=== PATIENT | male | born 1955 | race Caucasian/White ===

== ENCOUNTER 2019-11-06 14:42 | Outpatient (CLI) | payer OTHER ==
--- NOTE | 2019-11-06 15:28 | RAD ---
LUMBAR SPINE 3 VIEWS: HISTORY: Lumbar stenosis with neurogenic claudication. FINDINGS: Lateral neutral, lateral flexion and lateral upright views of the lumbar spine are submitted. There a re 5 lumbar-type vertebrae. No evidence of vertebral body fracture. Spondylolisthesis: L3-L4: 3.8 mm of anterolisthesis in the neutral position; 4 mm of anterolisthesis upon extension; 4.3 mm of anterolisthesis upon flexion. L4-L5: 5.5 mm of anterolisthesis in the neutral position; 4.5 mm of anterolisthesis upon extension; 4 .2 mm of anterolisthesis upon flexion. Moderate loss of disc space height at L5-S1. IMPRESSION: Grade 1 anterolisthesis of L3 upon L4 and L4 upon L5. Worsening spondylolisthesis upon flexion and ex tension at L3-L4. Decreased anterolisthesis upon flexion and extension at L4-L5. Transcribed Date/Time: 11/06/2019 3:50 PM
--- NOTE | 2019-11-06 15:59 | MRI ---
MRI lumbar spine noncontrast: HISTORY: Lumbar stenosis with neurogenic claudication. Low back pain, radiating across the sacrum. COMPARISON: None FINDINGS: Appropriate T1 marrow signal intensity lumbar vertebra. Lumbar spine vertebral body height is maintai deandre. There is no fracture. No significant STIR hyperintensity to suggest vertebral body edema or ligamentous injury. There is edematous change involving bilateral pedicles and facets at L4 and L5, l ikely representing stress reaction. Appropriate signal intensity of the visualized paraspinal muscles and solid organs Conus medullaris terminates at the superior aspect of L1 T12-L1:Mild loss of disc space height. No significant posterior disc abnormality. No significant cent ral canal stenosis or neural foraminal narrowing L1-L2:Desiccation with mild loss of disc space height. Minimal right paracentral disc bulge. No signi ficant central canal stenosis. Moderate right neural foraminal narrowing. Left neural foramen is patent L2-L3:Adequate disc hydration. Broad-based disc bulge minimally contacts the ventral thecal sac. Mild ligament flavum thickening and facet hypertrophy. Minimal central canal stenosis. Moderate right foraminal narrowing due to disc material. Left neural foramen is mildly narrowed due to disc material L3-L4:4.2 mm of anterolisthesis of L3 upon L4. Desiccation with mild loss of disc space height. Broad -based disc bulge, ligament flavum thickening and facet hypertrophy result in moderate central canal stenosis. Mild to moderate bilateral neural foraminal narrowing L4-L5:3.7 mm of anterolisthesis of L4 upon L5. Disc desiccation with mild loss of disc space height. Broad-based disc bulge, ligament flavum thickening and facet hypertrophy result in moderate to severe central canal stenosis. There is fluid in both hypertrophic facet joints. Moderate bilateral n eural foraminal narrowing L5-S1:Disc desiccation without significant posterior disc abnormality. No significant central canal s tenosis. Mild bilateral foraminal narrowing. There is moderate loss of disc space height IMPRESSION: Degenerative changes lumbar spine as detailed above. Transcribed Date/Time: 11/06/2019 5:01 PM
== END 2019-11-06 14:43 | disposition home or self-care (01) ==
LOC: TBSIIMAG 14:42
PROVIDERS: ATTEND Physician Assistant
DX: M48.062 Spinal stenosis, lumbar region with neurogenic claudication (principal); M41.9 Scoliosis, unspecified; M43.16 Spondylolisthesis, lumbar region; M47.816 Spondylosis without myelopathy or radiculopathy, lumbar region
CPT/HCPCS: 72100; 72148

== ENCOUNTER 2020-04-23 06:13 | Outpatient (CLI) | payer OTHER ==
[2020-04-23 11:49] LABS: Hemoglobin 14.7 g/dL (14.0-18.0); Mean Corpuscular HGB CONC 31.5 g/dL (32.0-36.0); Mean Corpuscular Hemoglobin 30.2 pg (27.0-31.0); Mean Corpuscular Volume 95.8 fL (78.0-98.0); Platelet Count 232 thou/uL (130-400); RBC Distribution Width 11.5 % (11.5-14.5); Red Blood Cell (RBC) Count 4.88 mill/uL (4.70-6.10); White Blood Cell (WBC) Count 3.9 thou/uL (4.8-10.8)
[2020-04-23 12:01] LABS: Anion Gap 12 mmol/L (10-20); BUN (Urea Nitrogen) 10 mg/dL (8.4-25.7); Calc. Creatinine Clearance 0 mL/min (70-130); Calcium 9.6 mg/dL (7.8-10.44); Carbon Dioxide 29 mmol/L (23-31); Chloride 102 mmol/L (98-107); Estimated GFR-MDRD 81; Glucose 89 mg/dL (80-115); Potassium 4.2 mmol/L (3.5-5.1); Sodium 139 mmol/L (136-145)
[2020-04-23 19:53] LABS: SARS-CoV-2 MS2 Positive; SARS-CoV-2 N Gene Negative; SARS-CoV-2 S Gene Negative; SARS-CoV-2 orf1ab Negative
== END 2020-04-23 06:14 | disposition home or self-care (01) ==
LOC: LABBT 06:13
PROVIDERS: ATTEND Neurological Surgery
DX: Z01.818 Encounter for other preprocedural examination (principal); Z11.59 Encounter for screening for other viral diseases; M48.062 Spinal stenosis, lumbar region with neurogenic claudication
CPT/HCPCS: 80048; 85027; 87635; 93005; 93010; U0003

== ENCOUNTER 2020-04-28 07:43 | Day surgery (SDC) | payer OTHER ==
[2020-04-21 11:15] VITALS: BMI 22.0
[2020-04-28] MEDS ORDERED: Lidocaine 1% PF 5 ML VIAL ONE (09:30)
[2020-04-28] MEDS ORDERED: PROPOFOL 200 MG/20 ML VIAL ONE (09:30)
[2020-04-28] MEDS ORDERED: Rocuronium Bromide 10 MG/ML (10ML VIAL) ONE (09:30)
[2020-04-28] MEDS ORDERED: PHENYLEPHRINE-NS 100 MCG/ML 10 ML SYRINGE ONE (09:30)
[2020-04-28] MEDS ORDERED: Dexamethasone 20 MG/5 ML VIAL ONE (09:30)
[2020-04-28] MEDS ORDERED: Ondansetron PF 4 MG/2 ML Vial ONE (09:30)
[2020-04-28] MEDS ORDERED: Fentanyl 100 MCG/2 ML VIAL ONE ×3 (11:36→13:39)
[2020-04-28] MEDS ORDERED: Tamsulosin HCl 0.4 MG CAP ONE (13:23)
--- NOTE | 2020-04-28 13:38 | OP ---
DATE OF PROCEDURE: 04/28/2020 [employer] AD[employer]ISTRATIVE ASSISTANT: Keli Daniels PA-C PROCEDURES PERFORMED: L4-L5 laminectomy. DESCRIPTION OF PROCEDURE: The patient was brought to the operating room and intubated. He was rolled in a prone position on gel-filled chest rolls. An incision was made exposing L4 and L5 and the level was confirmed by x-ray. We performed complete L5 and inferior L4 laminectomies, completely decompressing L4-L5 interspace. The wound was then extensively irrigated and MAC hemostasis was secured. Vancomycin powder was applied and the wound was closed in anatomic layers. Job ID: [id number]
[2020-04-28] MEDS ORDERED: tiZANidine HCl 4 MG TAB ONE (13:57)
[2020-04-28] MEDS ORDERED: HYDROcodone/Acetaminophen 5/325 mg Tablet ONE (15:13)
== END 2020-04-28 15:43 | disposition home or self-care (01) ==
LOC: SDC 07:43
PROVIDERS: ATTEND Neurological Surgery
PROC: 01NB0ZZ Release Lumbar Nerve, Open Approach (ICD-10-PCS; principal; 2020-04-28)
DX: M48.062 Spinal stenosis, lumbar region with neurogenic claudication (principal); M43.16 Spondylolisthesis, lumbar region; I10 Essential (primary) hypertension; M19.011 Primary osteoarthritis, right shoulder; Z79.899 Other long term (current) drug therapy
CPT/HCPCS: 76000; J0690; J1100; J2405; J2704; J3010; J3370